=== PATIENT | male | born 1960 | race Caucasian/White ===

== ENCOUNTER → 2021-06-12 | Outpatient (CLI) | payer SELFPAY | END | disposition home or self-care (01) | LOC: RAD 09:37 | PROVIDERS: ATTEND Internal Medicine | DX: R05 Cough (principal); M47.814 Spondylosis without myelopathy or radiculopathy, thoracic region; M19.012 Primary osteoarthritis, left shoulder ==

== ENCOUNTER → 2021-06-16 | Outpatient (CLI) | payer SELFPAY | END | disposition home or self-care (01) | LOC: CT 12:46 | PROVIDERS: ATTEND Internal Medicine | DX: R91.8 Other nonspecific abnormal finding of lung field (principal); J12.9 Viral pneumonia, unspecified; I25.10 Atherosclerotic heart disease of native coronary artery without angina pectoris; J92.9 Pleural plaque without asbestos ==

== ENCOUNTER → 2021-11-23 | Outpatient (CLI) | payer SELFPAY ==
[2021-11-23 08:04] LABS: CREATININE 1.16 mg/dL (0.70-1.30)
== END | disposition home or self-care (01) ==
LOC: LAB 07:33 → CT 08:00
PROVIDERS: ATTEND Internal Medicine
DX: J43.9 Emphysema, unspecified (principal); J92.9 Pleural plaque without asbestos; I25.10 Atherosclerotic heart disease of native coronary artery without angina pectoris; R91.8 Other nonspecific abnormal finding of lung field

== ENCOUNTER 2024-02-12 09:54 | Emergency (ER) | payer OTHER ==
[~2024-02-12] VITALS: Ht 182.8 cm; Wt 81.6 kg
[2024-02-12] MEDS ORDERED: Ketorolac Tromethamine 60 MG/2 ML VIAL IM ONE (10:20)
[2024-02-12] MEDS ORDERED: PAIN RELIEF PA1 EACH T (11:03)
== END 2024-02-12 11:12 | disposition home or self-care (01) ==
LOC: ED 09:54
DX: M25.511 Pain in right shoulder (principal)

== ENCOUNTER → 2024-03-30 | Outpatient (CLI) | payer MEDICARE ==
[~2024-03-30] MED LIST: PAIN RELIEF PA1 EACH T
== END | disposition home or self-care (01) ==
LOC: CT 15:48
PROVIDERS: ATTEND Internal Medicine
DX: R91.8 Other nonspecific abnormal finding of lung field (principal); I25.10 Atherosclerotic heart disease of native coronary artery without angina pectoris; J98.4 Other disorders of lung; J43.9 Emphysema, unspecified; Z87.891 Personal history of nicotine dependence

== ENCOUNTER → 2025-05-05 | Outpatient (CLI) | payer MEDICARE | END | disposition home or self-care (01) | LOC: CT 02:42 | PROVIDERS: ATTEND Internal Medicine | DX: Z12.2 Encounter for screening for malignant neoplasm of respiratory organs (principal); I25.10 Atherosclerotic heart disease of native coronary artery without angina pectoris; R91.8 Other nonspecific abnormal finding of lung field; F17.210 Nicotine dependence, cigarettes, uncomplicated ==

== ENCOUNTER → 2025-05-24 | Outpatient (CLI) | payer MEDICARE ==
[~2025-05-24] MED LIST changes: +Technetium Tc 99M Medronate 1 KIT KIT IV SCH
== END | disposition home or self-care (01) ==
LOC: NM 01:06
PROVIDERS: ATTEND Internal Medicine
DX: R91.8 Other nonspecific abnormal finding of lung field (principal); M89.9 Disorder of bone, unspecified

== ENCOUNTER 2025-06-29 15:21 | Emergency (ER) | payer MEDICARE ==
[~2025-06-29] VITALS: Wt 73.5 kg
[~2025-06-29 15:21] MED LIST changes: -Technetium Tc 99M Medronate 1 KIT KIT IV SCH
[2025-06-29 16:30] LABS: BASO # 0.0 10*3/uL (0.0-0.1); BASO % 0.5 % (0.0-1.0); EOS # 0.1 10*3/uL (0.0-0.4); EOS % 1.9 % (1.0-4.0); MEAN CELL VOLUME 92.7 fl (80.0-94.0); MEAN CORPUSCULAR HGB 30.5 pg (27.0-31.0); MEAN PLATELET VOLUME 11.5 fl (9.6-12.3); MONO # 0.7 10*3/uL (0.1-1.0); MONO % 9.3 % (3.0-9.0); NEUT # 4.0 10*3/uL (2.3-7.9); NEUT % 53.5 % (47.0-73.0); NUCLEATED RED BLOOD CELL 0.0 % (0.0-0.0); NUCLEATED RED BLOOD CELL 0.0 10*3/uL (0.0-0.0); PLATELET COUNT AUTOMATED 154 10*3/uL (130-400); RED CELL DISTRI WIDTH 13.1 % (0-14.5)
[2025-06-29] MEDS ORDERED: BRILINTA90 M1 PO (16:40)
[2025-06-29] MEDS ORDERED: ROSUVASTATIN CA40 MG PO (16:41)
[2025-06-29] MEDS ORDERED: METOPROLOL SUCC25 M2 PO (16:41)
[2025-06-29] MEDS ORDERED: LOSARTAN POTASS25 M1 PO (16:41)
[2025-06-29] MEDS ORDERED: ASPIRIN ADULT L81 M2 PO (16:41)
[2025-06-29 16:54] LABS: BUN 11 mg/dl (9-23); CPK 59 U/L (34-171); SGPT/ALT 27 U/L (5-49)
[2025-06-29] MEDS ORDERED: OMEPRAZOLE40 MG PO (17:48)
== END 2025-06-29 19:02 | disposition home or self-care (01) ==
LOC: ED 15:21
PROVIDERS: Emergency Medicine
DX: K29.70 Gastritis, unspecified, without bleeding (principal); I25.2 Old myocardial infarction; Z79.82 Long term (current) use of aspirin; Z79.899 Other long term (current) drug therapy

== ENCOUNTER → 2025-07-27 | Outpatient (CLI) | payer MEDICARE ==
[~2025-07-27] MED LIST changes: +ASPIRIN ADULT L81 M2 PO; +BRILINTA90 M1 PO; +LOSARTAN POTASS25 M1 PO; +METOPROLOL SUCC25 M2 PO; +OMEPRAZOLE40 MG PO; +ROSUVASTATIN CA40 MG PO
== END | disposition home or self-care (01) ==
LOC: CARD 04:31
PROVIDERS: ATTEND Physician Assistant Medical
DX: I11.9 Hypertensive heart disease without heart failure (principal); I25.10 Atherosclerotic heart disease of native coronary artery without angina pectoris